=== PATIENT | male | born 2000 | race Caucasian/White ===

== ENCOUNTER 2020-11-17 20:31 | Emergency (ER) | payer MEDICAID, OTHER ==
--- NOTE | 2020-11-17 20:58 | EDM.PDOC ---
ED HPI GENERAL MEDICAL PROBLEM - General Chief Complaint: ENT Problem Stated Complaint: 4 DAYS VOMITING, LOSS OF SMELL Time Seen by Provider: 11/17/20 20:53 Source of Information: Reports: Patient, RN Notes Reviewed History Limitations: Reports: No Limitations - History of Present Illness INITIAL COMMENTS - FREE TEXT/NARRATIVE: 20-year-old gentleman presents emergency department a complaint of loss of smell, he states he has had symptoms for about 4 days he had a fever yesterday is coughing up a lot of mucus no exposures that he is aware of Treatments [employer]IL CAR [employer]: Reports: Acetaminophen Upper Anterior Face/Facial Pain Score (Numeric/FACES): 4 - Related Data Allergies Allergy/AdvReac Type Severity Reaction Status Date / Time No Known Allergies Allergy Verified 11/17/20 20:48 Home Meds: Home Meds NK [No Known Home Meds] 11/17/20 [History] Past Medical History Respiratory History: Reports: Asthma - Past Surgical History HEENT Surgical History: Reports: Adenoidectomy, Tonsillectomy Social & Family History - Tobacco Use Tobacco Use Status *Q: Light Tobacco User Years of Tobacco use: 2 Packs/Tins Daily: 0.1 Tobacco Use Comment: Vape twice per month - Caffeine Use Caffeine Use: Reports: Coffee, Energy Drinks - Recreational Drug Use Recreational Drug Use: No ED ROS GENERAL - Review of Systems Review Of Systems: See Below Constitutional: Reports: No Symptoms HEENT: Reports: Rhinitis, Sinus Problem, Other (Loss of smell) Respiratory: Reports: No Symptoms Cardiovascular: Reports: No Symptoms GI/Abdominal: Reports: No Symptoms ED EXAM, GENERAL - Physical Exam Exam: See Below Exam Limited By: No Limitations General Appearance: Alert, WD/WN, No Apparent Distress Nose: Normal Inspection, Normal Mucosa, No Blood Throat/Mouth: Normal Inspection, Normal Lips, Normal Teeth, Normal Gums, Normal Oropharynx, Normal Voice, No Airway Compromise Respiratory/Chest: No Respiratory Distress, Lungs Clear, Normal Breath Sounds, No Accessory Muscle Use, Chest Non-Tender Cardiovascular: Regular Rate, Rhythm, No Murmur Course - Vital Signs Last Recorded V/S: Last Vital Signs Temp 98.2 F 11/17/20 21:36 Pulse 95 11/17/20 21:36 Resp 16 11/17/20 21:36 BP 131/72 11/17/20 21:36 Pulse Ox 95 11/17/20 21:36 - Orders/Labs/Meds Labs: Laboratory Tests 11/17/20 Range/Units 20:56 Influenza Type A RNA Negative (NEGATIVE) RSV RNA ([facility]) Negative (NEGATIVE) Influenza Type B RNA Negative (NEGATIVE) SARS-CoV-2 RNA ([facility]) Negative (NEGATIVE) Departure - Departure Time of Disposition: 21:51 Disposition: Home, Self-Care 01 Condition: Fair Clinical Impression: Sinusitis Qualifiers: Sinusitis location: frontal Chronicity: acute Recurrence: non-recurrent Qualified Code(s): J01.10 - Acute frontal sinusitis, unspecified - Discharge Information Instructions: Sinusitis, Adult, [id number] Referrals: PCP,None [Primary Care Provider] - Forms: ED Department Discharge, ED Return to Work/School Form Additional Instructions: Recommend symptomatic care follow-up primary care as needed call or return to the emergency department worsening of symptoms Sepsis Event Note (ED) - Focused Exam Vital Signs: Vital Signs Temp Pulse Resp BP Pulse Ox 11/17/20 21:36 98.2 F 95 16 131/72 95 11/17/20 20:47 98.2 F 95 16 131/72 95 - Assessment/Plan Plan: Assessment Acuity = acute Site and laterality = sinusitis Etiology = probably viral Manifestations = none Location of injury = Home Lab values = Covid influenza a and B and RSV all negative Plan Recommend symptomatic care follow-up primary care as needed This note was dictated using [email or web address] voice recognition software please call with any questions on syntax or grammar.
[2020-11-17 21:47] LABS: CORONAVIRUS COVID-19 NAA NEGATIVE (NEGATIVE)
== END 2020-11-17 22:04 | disposition home or self-care (01) ==
LOC: JP.ED 20:31
DX: J01.10 Acute frontal sinusitis, unspecified (principal); J45.909 Unspecified asthma, uncomplicated; Z20.822 Contact with and (suspected) exposure to COVID-19; Z72.0 Tobacco use
CPT/HCPCS: 0241U; 99282; 99283

== ENCOUNTER 2021-02-03 20:10 | Emergency (ER) | payer MEDICAID, OTHER ==
--- NOTE | 2021-02-03 21:19 | EDM.PDOC ---
ED HPI GENERAL MEDICAL PROBLEM - General Chief Complaint: Gastrointestinal Problem Stated Complaint: MEDICATION CONCERNS Time Seen by Provider: 02/03/21 21:18 Source of Information: Reports: Patient History Limitations: Reports: No Limitations - History of Present Illness INITIAL COMMENTS - FREE TEXT/NARRATIVE: Patient presents to the ER today due to intermittent nausea and loose stools that have developed while taking antibiotic for dental procedure--clindamycin. He states he contacted his dentist office but was told they were too busy and that he should just go to the ER. He states he is only nauseated when up walking around, tolerating normal diet, no vomiting reported. He states he is drinking plenty of water--1 bottle each time he takes his ABX. PMH--denies Meds--denies NKDA - Related Data Allergies Allergy/AdvReac Type Severity Reaction Status Date / Time No Known Allergies Allergy Verified 11/17/20 20:48 Home Meds: Home Meds clindamycin HCL [Cleocin] 2 cap PO Q8H 02/03/21 [History] traMADol HCl [Tramadol HCl] 1 tab PO ASDIRECTED PRN 02/03/21 [History] Past Medical History Respiratory History: Reports: Asthma - Infectious Disease History Infectious Disease History: Reports: None - Past Surgical History HEENT Surgical History: Reports: Adenoidectomy, Tonsillectomy Social & Family History - Tobacco Use Tobacco Use Status *Q: Current Every Day Tobacco User Years of Tobacco use: 3 Packs/Tins Daily: 0.5 - Caffeine Use Caffeine Use: Reports: Coffee, Soda, Tea - Recreational Drug Use Recreational Drug Use: No ED ROS GENERAL - Review of Systems Review Of Systems: See Below Constitutional: Reports: No Symptoms HEENT: Reports: No Symptoms Respiratory: Reports: No Symptoms Cardiovascular: Reports: No Symptoms Endocrine: Reports: No Symptoms GI/Abdominal: Reports: Diarrhea (loose stools), Nausea. Denies: Decreased Appetite, Vomiting : Reports: No Symptoms Musculoskeletal: Reports: No Symptoms Skin: Reports: No Symptoms Neurological: Reports: No Symptoms. Denies: Dizziness, Headache Psychiatric: Reports: No Symptoms Hematologic/Lymphatic: Reports: No Symptoms Immunologic: Reports: No Symptoms ED EXAM, GI/ABD - Physical Exam Exam: See Below Exam Limited By: No Limitations General Appearance: Alert, WD/WN, No Apparent Distress Eyes: Bilateral: Normal Appearance, EOMI Ears: Normal External Exam Nose: Normal Inspection Throat/Mouth: Normal Inspection, Normal Lips, Normal Voice, No Airway Compromise Head: Atraumatic, Normocephalic Neck: Normal Inspection, Supple, Full Range of Motion Respiratory/Chest: No Respiratory Distress, Lungs Clear, Normal Breath Sounds Cardiovascular: Normal Peripheral Pulses, Regular Rate, Rhythm, No Edema, No Murmur GI/Abdominal Exam: Normal Bowel Sounds, Soft, Non-Tender. No: Guarding, Rigid, Rebound (Male) Exam: Deferred Rectal (Males) Exam: Deferred Extremities: Normal Inspection, No Pedal Edema, Normal Capillary Refill Neurological: Alert, Oriented, Normal Cognition Psychiatric: Normal Affect, Normal Mood Skin Exam: Warm, Dry, Intact, Normal Color Course - Vital Signs Text/Narrative:: d/w patient that medication management should be as per his dentist as that is the person familiar with why they prescribe the antibiotic. his reported symptoms are side effects common with this antibiotic, offered anti-emetic for nausea (he verbalized agreement), to increase fluids--water/sports drinks of choice such as gatorade/powerade/body armor to ensure well hydrated, may consider use of probiotics (as found over the counter in the vitamin section)--do not swallow same time as antibiotic but separate by at least 1-2 hours. for further concerns contact your dentist. verbalized understanding/agreement with plan of care Last Recorded V/S: Last Vital Signs Temp 36.2 F L 02/03/21 20:53 Pulse 80 02/03/21 20:53 Resp 16 02/03/21 20:53 BP 137/81 02/03/21 20:53 Pulse Ox 100 02/03/21 20:53 Departure - Departure Time of Disposition: 21:55 Disposition: Home, Self-Care 01 Clinical Impression: Nausea, Antibiotic causing adverse effect - Discharge Information *PRESCRIPTION DRUG MONITORING PROGRAM REVIEWED*: Not Applicable *COPY OF PRESCRIPTION DRUG MONITORING REPORT IN PATIENT BEL: Not Applicable Instructions: Nausea, Adult, [id number], Probiotics Referrals: PCP,None [Primary Care Provider] - Forms: ED Department Discharge Additional Instructions: I have provided an anti-emetic for nausea--ondansetron (Zofran) It is recommended that you increase fluids--water/sports drinks of choice such as gatorade/powerade/body armor to ensure well hydrated You may consider use of probiotics (as found over the counter in the vitamin section)--do not swallow same time as antibiotic but separate by at least 1-2 ho urs For further concerns contact your dentist Sepsis Event Note (ED) - Evaluation Sepsis Screening Result: No Definite Risk - Focused Exam Vital Signs: Vital Signs Temp Pulse Resp BP Pulse Ox 02/03/21 20:53 36.2 F L 80 16 137/81 100 02/03/21 20:33 36.2 F L 80 16 137/81 100
== END 2021-02-03 22:19 | disposition home or self-care (01) ==
LOC: JP.ED 20:10
DX: R11.0 Nausea (principal); T36.8X5A Adverse effect of other systemic antibiotics, initial encounter; Z72.0 Tobacco use
CPT/HCPCS: 99283

== ENCOUNTER 2024-05-26 11:07 | Emergency (ER) | payer MEDICAID, OTHER ==
[2024-05-26 13:39] LABS: CORONAVIRUS COVID-19 NAA NEGATIVE (NEGATIVE); INFLUENZA A NAA NEGATIVE (NEGATIVE); INFLUENZA B NAA NEGATIVE (NEGATIVE); RESPIRATORY SYNCYTIAL VIR NAA NEGATIVE (NEGATIVE)
== END 2024-05-26 13:25 | disposition home or self-care (01) ==
LOC: JP.ED 11:07
DX: M54.50 Low back pain, unspecified (principal); F17.210 Nicotine dependence, cigarettes, uncomplicated
CPT/HCPCS: 0241U; 99283; 99282